=== PATIENT | male | born 1980 | race Caucasian/White ===

== ENCOUNTER 2021-07-20 03:27 | Emergency (ER) | payer OTHER ==
[2021-07-20 04:00] LABS: HEMOGLOBIN 16.8 gm/dl (14.0-17.5); RED BLOOD COUNT 5.79 M/UL (4.20-5.50); WHITE BLOOD COUNT 15.6 K/UL (4.5-11.0)
[2021-07-20 04:21] LABS: BUN/CREATININE RATIO 19 (0-10)
[2021-07-20] MEDS ORDERED: OMEPRAZOLE20 M1 PO (05:26)
[2021-07-20] MEDS ORDERED: ONDANSETRON ODT4 MG SL (05:26)
== END 2021-07-20 05:56 | disposition home or self-care (01) ==
LOC: ER1 03:27
PROVIDERS: Physician Assistant
DX: K56.7 Ileus, unspecified (principal); K76.0 Fatty (change of) liver, not elsewhere classified; F17.200 Nicotine dependence, unspecified, uncomplicated; K21.9 Gastro-esophageal reflux disease without esophagitis
CPT/HCPCS: 80053; 81001; 83690; 85025; 96374; 96375; 99284; J2270; J2405; Q9967

== ENCOUNTER 2022-03-11 11:22 | Emergency (ER) | payer OTHER ==
[~2022-03-11 11:22] MED LIST: OMEPRAZOLE20 M1 PO; ONDANSETRON ODT4 MG SL
[2022-03-11 12:38] LABS: HEMOGLOBIN 14.3 gm/dl (14.0-17.5); RED BLOOD COUNT 5.12 M/UL (4.20-5.50)
[2022-03-11 12:57] LABS: BUN/CREATININE RATIO 16 (0-10)
[2022-03-11] MEDS ORDERED: ZOFRAN 4 MG TAB4 MG PO (17:00)
[2022-03-11] MEDS ORDERED: BENTYL 20MG TAB20 MG PO (17:00)
== END 2022-03-11 17:50 | disposition home or self-care (01) ==
LOC: ER1 11:22
PROVIDERS: Physician Assistant
DX: K80.70 Calculus of gallbladder and bile duct without cholecystitis without obstruction (principal)
CPT/HCPCS: 76705; 80053; 81001; 83690; 85025; 96374; 96375; 99284; J2270; J2405; Q9967